=== PATIENT | male | born 1945 | race American Indian/Alaskan Native ===

== ENCOUNTER 2017-11-13 11:52 | Emergency (ER) | payer MEDICARE ==
[2017-11-13] MEDS ORDERED: MOTRIN PO ONE (15:24)
--- NOTE | 2017-11-13 15:56 | Emergency Department Report ---
ED Upper Extremity Inj HPI - General Chief Complaint: Extremity Injury, Upper Stated Complaint: LEFT THUMB PAIN Time Seen by Provider: 11/13/17 15:13 Source: patient Mode of arrival: Ambulatory Limitations: No Limitations - History of Present Illness Initial Comments: This is a 72-year-old male nontoxic, well nourished in appearance, no acute signs of distress presents to the ED with c/o of left thumb stiffness and pain 4 days. Patient stated that he wake up with this. Patient denies any trauma. Patient denies any numbness, tingling, fever, chills, nausea, vomiting, chest pain, shortness of breath, headache, stiff neck. Patient denies any joint swelling or joint redness. Patient denies decreased range of motion. Patient denies any allergies. PMH includes DM, GERD, and HTN. MD Complaint: Injury to:: right, finger -: days(s) (4) Other Extremity Injury: Fingers: Left Other Injuries: none Place: home Severity scale (0 -10): 3 Improves With: none Worsens With: none Associated Symptoms: denies other symptoms. denies: weakness, numbness, neck pain, suspects foreign body, nausea/vomiting, heard/felt popping sensat - Related Data Home Medications Medication Instructions Recorded Confirmed Last Taken Clopidogrel [Plavix] 75 mg PO DAILY 06/26/13 08/15/16 1 Day Ago ~08/14/16 Lisinopril [Zestril] 40 mg PO DAILY 06/26/13 08/15/16 1 Day Ago ~08/14/16 Metoprolol [Lopressor TAB] 100 mg PO DAILY 06/26/13 08/15/16 1 Day Ago ~08/14/16 glipiZIDE [Glipizide] 1 tab PO DAILY 01/01/14 08/15/16 1 Day Ago ~08/14/16 ALPRAZolam [Xanax TAB] 1 mg PO BID PRN 08/13/16 08/15/16 1 Day Ago ~08/14/16 ISOSORBIDE MONOnitrate [Imdur ER] 30 mg PO BID 08/13/16 08/15/16 1 Day Ago ~08/14/16 Pravastatin Sodium [Pravastatin] 40 mg PO QHS 08/13/16 08/15/16 1 Day Ago ~08/14/16 metFORMIN [Glucophage] 500 mg PO BID #0 08/13/16 08/13/16 Unknown Previous Rx's Medication Instructions Recorded Last Taken Type Aspirin EC [Aspirin Enteric Coated 81 mg PO QDAY #30 tablet 08/15/16 Unknown Rx TAB] AtorvaSTATin [Lipitor] 20 mg PO QHS #30 tablet 08/17/16 Unknown Rx Clopidogrel [Plavix] 75 mg PO DAILY #30 tablet 08/17/16 Unknown Rx Doxazosin [Cardura] 1 mg PO QDAY tablet 08/17/16 Unknown Rx Acetaminophen [Tylenol Arthritis] 650 mg PO Q8H PRN #30 tablet.er 11/13/17 Unknown Rx Allergies Allergy/AdvReac Type Severity Reaction Status Date / Time No Known Allergies Allergy Verified 01/01/14 14:12 ED Review of Systems ROS: Stated complaint: LEFT THUMB PAIN Other details as noted in HPI Constitutional: denies: chills, fever Eyes: denies: eye pain, eye discharge, vision change ENT: denies: ear pain, throat pain Respiratory: denies: cough, shortness of breath, wheezing Cardiovascular: denies: chest pain, palpitations Endocrine: no symptoms reported Gastrointestinal: denies: abdominal pain, nausea, diarrhea Genitourinary: denies: urgency, dysuria Musculoskeletal: denies: back pain, joint swelling, arthralgia Skin: denies: rash, lesions Neurological: denies: headache, weakness, paresthesias Psychiatric: denies: anxiety, depression Hematological/Lymphatic: denies: easy bleeding, easy bruising ED Past Medical Hx - Past Medical History Hx Hypertension: Yes Hx Diabetes: Yes Hx GERD: Yes Hx Renal Disease: Yes Hx Asthma: No Hx COPD: No Hx Tuberculosis: No Hx HIV: No Additional medical history: STENTS, Renal insufficiency - Surgical History Hx Coronary Stent: Yes - Social History Smoking Status: Never Smoker Substance Use Type: None - Medications Home Medications: Home Medications Medication Instructions Recorded Confirmed Last Taken Type Clopidogrel [Plavix] 75 mg PO DAILY 06/26/13 08/15/16 1 Day Ago History ~08/14/16 Lisinopril [Zestril] 40 mg PO DAILY 06/26/13 08/15/16 1 Day Ago History ~08/14/16 Metoprolol [Lopressor TAB] 100 mg PO DAILY 06/26/13 08/15/16 1 Day Ago History ~08/14/16 glipiZIDE [Glipizide] 1 tab PO DAILY 01/01/14 08/15/16 1 Day Ago History ~08/14/16 ALPRAZolam [Xanax TAB] 1 mg PO BID PRN 08/13/16 08/15/16 1 Day Ago History ~08/14/16 ISOSORBIDE MONOnitrate [Imdur ER] 30 mg PO BID 08/13/16 08/15/16 1 Day Ago History ~08/14/16 Pravastatin Sodium [Pravastatin] 40 mg PO QHS 08/13/16 08/15/16 1 Day Ago History ~08/14/16 metFORMIN [Glucophage] 500 mg PO BID #0 08/13/16 08/13/16 Unknown History Aspirin EC [Aspirin Enteric Coated 81 mg PO QDAY #30 tablet 08/15/16 Unknown Rx TAB] AtorvaSTATin [Lipitor] 20 mg PO QHS #30 tablet 08/17/16 Unknown Rx Clopidogrel [Plavix] 75 mg PO DAILY #30 tablet 08/17/16 Unknown Rx Doxazosin [Cardura] 1 mg PO QDAY tablet 08/17/16 Unknown Rx Acetaminophen [Tylenol Arthritis] 650 mg PO Q8H PRN #30 tablet.er 11/13/17 Unknown Rx ED Physical Exam - General Limitations: No Limitations General appearance: alert, in no apparent distress - Head Head exam: Present: atraumatic, normocephalic - Eye Eye exam: Present: normal appearance - ENT ENT exam: Present: mucous membranes moist - Neck Neck exam: Present: normal inspection - Respiratory Respiratory exam: Present: normal lung sounds bilaterally. Absent: respiratory distress - Cardiovascular Cardiovascular Exam: Present: regular rate, normal rhythm. Absent: systolic murmur, diastolic murmur, rubs, gallop - GI/Abdominal GI/Abdominal exam: Present: soft, normal bowel sounds - Rectal Rectal exam: Present: deferred - Extremities Exam Extremities exam: Present: normal inspection, full ROM, normal capillary refill. Absent: tenderness, joint swelling - Expanded Upper Extremity Exam Left General: Present: normal inspection Shoulder Exam: Present: normal inspection, full ROM. Absent: tenderness, swelling Upper Arm exam: Present: normal inspection, full ROM. Absent: tenderness, swelling Elbow exam: Present: normal inspection, full ROM. Absent: tenderness, swelling Forearm Wrist exam: Present: normal inspection, full ROM. Absent: tenderness, swelling, abrasion, laceration, ecchymosis, deformity, crepidus, dislocation, erythema, tenderness over anatomical snuff box, pain with axial thumb loading Hand Wrist exam: Present: normal inspection, full ROM. Absent: tenderness, swelling, abrasion, laceration, ecchymosis, deformity, crepidus, dislocation, erythema, amputation, nail avulsion, subungual hematoma Neuro motor exam: Present: wrist extension intact, thumb opposition intact, thumb IP flexion intact, thumb adduction intact, fingers 2-5 abduction intact Neurosensory exam: Present: 2-point discrimination, radial nerve intact, ulnar nerve intact, median nerve intact Vascular: Present: vascular compromise, normal capillary refill, radial pulse, brachial pulse, ulnar pulse - Back Exam Back exam: Present: normal inspection, full ROM - Neurological Exam Neurological exam: Present: alert, oriented X3, normal gait - Psychiatric Psychiatric exam: Present: normal affect, normal mood - Skin Skin exam: Present: warm, dry, intact, normal color. Absent: rash ED Course Vital Signs 11/13/17 12:34 Temperature 98.3 F Pulse Rate 103 H Respiratory 16 Rate Blood Pressure 160/89 O2 Sat by Pulse 96 Oximetry - Reevaluation(s) Reevaluation #1: 11/13/17 15:55 Patient is speaking in full sentences with no signs of distress noted. ED Medical Decision Making - Medical Decision Making This is a 72-year-old male that presents with left finger strain. Patient is stable and was examined by me. I referred patient to an orthopedic doctor for further evaluation. X-ray has been obtained and dictated by the radiologist. Patient is notified of the x-ray report with noted by the patient. Patient does have normal gait with no tenderness and no joint swelling. No ecchymosis. no joint redness or swelling. Not warm to touch. No signs of cellulites present. Patient was instructed to RICE therapy. Patient received Motrin for pain. Patient is discharged with Motrin. At time of discharge, the patient does not seem toxic or ill in appearance. No acute signs of distress noted. Patient agrees to discharge treatment plan of care. No further questions noted by the patient. Critical care attestation.: If time is entered above; I have spent that time in minutes in the direct care of this critically ill patient, excluding procedure time. ED Disposition Clinical Impression: Arthritis, Strain of finger, left Disposition: DC-01 TO HOME OR SELFCARE Is pt being admited?: No Does the pt Need Aspirin: No Condition: Stable Instructions: RICE Therapy (ED) Additional Instructions: Follow-up with a primary care/orthopedic doctor in 3-5 days or if symptoms worsen and continue return to emergency room as soon as possible. Prescriptions: Acetaminophen [Tylenol Arthritis] 650 mg PO Q8H PRN #30 tablet.er PRN Reason: Pain, Moderate (4-6) Referrals: PRIMARY CARE, [Primary Care Provider] - 3-5 Days SIXTO RODRIGUES MD [Staff Physician] - 3-5 Days [facility] [Outside] - 3-5 Days
--- NOTE | 2017-11-13 16:23 | XRay Report ---
FINAL REPORT EXAM: XR HAND 3+V LT HISTORY: left thumb pain COMPARISON: None. TECHNIQUE: Three views of the left hand FINDINGS: There is normal alignment without acute fracture or dislocation. There is mild DIP and PIP joint space narrowing. The overlying soft tissues are intact. IMPRESSION: Mild degenerative changes of the left hand without acute fracture or dislocation.
[2017-11-13 16:39] VITALS: BP 140/87
== END 2017-11-13 16:38 | disposition home or self-care (01) ==
LOC: ED 11:52
DX: S56.312A Strain of extensor or abductor muscles, fascia and tendons of left thumb at forearm level, initial encounter (principal); E11.9 Type 2 diabetes mellitus without complications; K21.9 Gastro-esophageal reflux disease without esophagitis; I10 Essential (primary) hypertension; Z79.82 Long term (current) use of aspirin; Z87.442 Personal history of urinary calculi; X58.XXXA Exposure to other specified factors, initial encounter; Y93.89 Activity, other specified; Y92.89 Other specified places as the place of occurrence of the external cause; Y99.8 Other external cause status
CPT/HCPCS: 99283